=== PATIENT | male | born 1970 | race American Indian/Alaskan Native ===

== ENCOUNTER 2019-10-05 14:24 | Emergency (ER) | payer OTHER | END 2019-10-05 21:38 | disposition home or self-care (01) | LOC: ED 14:24 | CPT/HCPCS: 71046; 87400 ==

== ENCOUNTER 2021-09-03 19:07 | Emergency (ER) | payer OTHER ==
--- NOTE | 2021-09-03 21:45 | Emergency Department Report ---
ED Neuro Deficit HPI - General Chief Complaint: Neuro Symptoms/Deficit Stated Complaint: SLURRED SPEECH Source: patient Mode of arrival: Ambulatory Limitations: No Limitations - History of Present Illness Initial Comments: This is a 51-year-old male with past medical history of hypertension who presents to emergency department after he had slurred speech on and Friday. Patient did not seek care as he thought the symptoms may be secondary to his busy schedule and him not taking his blood pressure medications. He did not check his blood pressure during this time. He denies drinking any alcohol at this time. He denies any associated numbness tingling or weakness. He denies any trouble with his gait. Patient does follow with primary care doctor at [facility] and they referred him to the emergency department. -: days(s) Location: dysarthria History of same: No Severity: mild On Anticoagulants: No Context: change in medication Associated Symptoms: denies other symptoms Treatments Prior to Arrival: none - Related Data Home Medications: Previous Rx's Medication Instructions Recorded Last Taken Type Acetaminophen [Acetaminophen TAB] 325 mg PO Q4H PRN #30 tablet 04/06/17 Unknown Rx Lisinopril/Hydrochlorothiazide 1 tab PO QDAY #30 tab 04/06/17 Unknown Rx [Zestoretic 20-12.5 mg] Acetaminophen/Chlorpheniramine 1 each PO Q6H #20 tablet 10/05/19 Unknown Rx [Coricidin Hbp Cold-Flu Tablet] Benzonatate [Tessalon Perles] 100 mg PO Q8HR PRN #30 capsule 10/05/19 Unknown Rx Fluticasone [Flonase] 1 spray NS QDAY #1 bottle 10/05/19 Unknown Rx Aspirin [Aspirin BABY CHEW TAB] 81 mg PO DAILY #30 tab.chew 09/03/21 Unknown Rx Rosuvastatin Calcium [Crestor] 40 mg PO DAILY #30 tablet 09/03/21 Unknown Rx Allergies/Adverse Reactions: Allergies Allergy/AdvReac Type Severity Reaction Status Date / Time No Known Allergies Allergy Verified 04/22/14 20:36 ED Review of Systems ROS: Stated complaint: SLURRED SPEECH Other details as noted in HPI Constitutional: denies: chills, fever Eyes: denies: eye pain ENT: denies: throat pain Respiratory: denies: cough Cardiovascular: denies: chest pain Endocrine: no symptoms reported Gastrointestinal: denies: abdominal pain, nausea, vomiting Genitourinary: denies: urgency, dysuria Skin: denies: rash Neurological: denies: headache, weakness Psychiatric: denies: anxiety, depression Hematological/Lymphatic: denies: easy bleeding ED Past Medical Hx - Past Medical History Previous Medical History?: Yes Hx Hypertension: Yes (non compliant with medication for the past) - Surgical History Past Surgical History?: Yes Additional Surgical History: right inquinal hernia repair - Social History Smoking Status: Never Smoker Substance Use Type: None - Medications Home Medications: Home Medications Medication Instructions Recorded Confirmed Last Taken Type Acetaminophen [Acetaminophen TAB] 325 mg PO Q4H PRN #30 tablet 04/06/17 Unknown Rx Lisinopril/Hydrochlorothiazide 1 tab PO QDAY #30 tab 04/06/17 Unknown Rx [Zestoretic 20-12.5 mg] Acetaminophen/Chlorpheniramine 1 each PO Q6H #20 tablet 10/05/19 Unknown Rx [Coricidin Hbp Cold-Flu Tablet] Benzonatate [Tessalon Perles] 100 mg PO Q8HR PRN #30 capsule 10/05/19 Unknown Rx Fluticasone [Flonase] 1 spray NS QDAY #1 bottle 10/05/19 Unknown Rx Aspirin [Aspirin BABY CHEW TAB] 81 mg PO DAILY #30 tab.chew 09/03/21 Unknown Rx Rosuvastatin Calcium [Crestor] 40 mg PO DAILY #30 tablet 09/03/21 Unknown Rx ED Neuro Physical Exam - General Limitations: No Limitations General appearance: alert, in no apparent distress Suspected Stroke: No - Head Head exam: Present: atraumatic, normocephalic - Eye Eye exam: Present: normal appearance, PERRL, EOMI Pupils: Present: normal accommodation - ENT ENT exam: Present: normal exam - Neck Neck exam: Present: normal inspection - Respiratory Respiratory exam: Present: normal lung sounds bilaterally. Absent: respiratory distress, wheezes, rales - Cardiovascular Cardiovascular Exam: Present: regular rate, normal rhythm - GI/Abdominal GI/Abdominal exam: Present: soft. Absent: distended, tenderness - Rectal Rectal exam: Present: deferred - Extremities Exam Extremities exam: Present: normal inspection, full ROM. Absent: tenderness - Back Exam Back exam: Present: normal inspection - Neurological Exam Neurological exam: Present: alert, oriented X3 - NIHSS Assessment Interval: 24 hours post onset of symptoms +-20 minutes ED Course Vital Signs 09/03/21 09/03/21 19:11 21:30 Temperature 97.7 F Pulse Rate 88 74 Respiratory 18 14 Rate Blood Pressure 158/101 Blood Pressure 145/83 [Right] O2 Sat by Pulse 98 95 Oximetry - Reevaluation(s) Reevaluation #1: 09/03/21 23:29 I discussed the results of the patient's labs and imaging. Patient was offered admission for further stroke work-up however patient does not wish to stay. He is encouraged to continue taking his blood pressure medication he is also been started on a daily aspirin as well as statin. Patient is to call his primary care doctor tomorrow and discuss his results. He is also encouraged to follow- up with neurology. We also discussed strict return precautions including any new neuro symptoms. - Lab Data Result diagrams: 09/03/21 21:44 09/03/21 21:44 Lab Results 09/03/21 09/03/21 09/03/21 Range/Units 21:44 21:44 21:44 WBC 7.5 (4.5-11.0) K/mm3 RBC 5.94 H (3.65-5.03) M/mm3 Hgb 13.3 (11.8-15.2) gm/dl Hct 41.8 (35.5-45.6) % MCV 70 L (84-94) fl MCH 22 L (28-32) pg MCHC 32 (32-34) % RDW 15.9 H (13.2-15.2) % Plt Count 145 (140-440) K/mm3 Lymph % (Auto) 34.6 (13.4-35.0) % [place] % (Auto) 7.5 H (0.0-7.3) % Eos % (Auto) 3.3 (0.0-4.3) % Baso % (Auto) 0.7 (0.0-1.8) % Lymph # (Auto) 2.6 (1.2-5.4) K/mm3 [place] # (Auto) 0.6 (0.0-0.8) K/mm3 Eos # (Auto) 0.3 (0.0-0.4) K/mm3 Baso # (Auto) 0.1 (0.0-0.1) K/mm3 Seg Neutrophils % 53.9 (40.0-70.0) % Seg Neutrophils # 4.1 (1.8-7.7) K/mm3 PT 14.1 (12.2-14.9) Sec. INR 0.98 (0.87-1.13) Sodium 143 (137-145) mmol/L Potassium 3.9 (3.6-5.0) mmol/L Chloride 102.2 (98-107) mmol/L Carbon Dioxide 28 (22-30) mmol/L Anion Gap 17 mmol/L BUN 17 (9-20) mg/dL Creatinine 1.5 H (0.8-1.3) mg/dL Estimated GFR > 60 ml/min BUN/Creatinine Ratio 11 % Glucose 92 (75-100) mg/dL Calcium 9.8 (8.4-10.2) mg/dL Total Bilirubin 0.50 (0.1-1.2) mg/dL AST 24 (5-40) units/L ALT 33 (7-56) units/L Alkaline Phosphatase 65 (35-129) units/L Troponin T < 0.010 (0.00-0.029) ng/mL Total Protein 6.8 (6.3-8.2) g/dL Albumin 4.3 (3.9-5) g/dL Albumin/Globulin Ratio 1.7 % - EKG Data -: EKG Interpreted by Me EKG shows normal: sinus rhythm Rate: normal Interpretation: nonspecific ST-T wave claudia EKG performed at 2206. Patient has a rate of 71, sinus rhythm, right axis deviation. Patient does have T wave inversions in the lateral leads, ST changes in the inferior leads. - Medical Decision Making Patient is a 51-year-old male here with complaints of slurred speech which occurred on and Friday. Patient no longer has the slurred speech. Patient saw his primary care doctor who referred him to the emergency department. He currently denies any neurological symptoms. His symptoms resolved on Friday. Plan for evaluation including labs, EKG, CT scan of the brain. Will discuss after CT imaging. Critical care attestation.: If time is entered above; I have spent that time in minutes in the direct care of this critically ill patient, excluding procedure time. ED Disposition Clinical Impression: TIA (transient ischemic attack), Elevated serum creatinine Disposition: HOME / SELF CARE / HOMELESS Is pt being admited?: No Does the pt Need Aspirin: Yes Condition: Stable Instructions: Transient Ischemic Attack, [id number] Prescriptions: Aspirin [Aspirin BABY CHEW TAB] 81 mg PO DAILY #30 tab.chew Rosuvastatin Calcium [Crestor] 40 mg PO DAILY #30 tablet Referrals: PRIMARY CARE, [Primary Care Provider] - 3-5 Days
[2021-09-03 22:10] LABS: INR 0.98 (0.87-1.13)
[2021-09-03 22:16] LABS: Alanine Aminotransferase 33 units/L (7-56); Albumin 4.3 g/dL (3.9-5); BUN/Creatinine Ratio 11; Blood Urea Nitrogen 17 mg/dL (9-20); Calcium 9.8 mg/dL (8.4-10.2); Hemolysis Index 6
--- NOTE | 2021-09-03 22:22 | Cat Scan Report ---
CT HEAD WITHOUT CONTRAST INDICATION / CLINICAL INFORMATION: Slurred speech on and Friday. TECHNIQUE: All CT scans at this location are performed using CT dose reduction for ALARA by means of automated exposure control. COMPARISON: None available. FINDINGS: There is no acute intracranial hemorrhage, mass effect, or edema. There is mild diffuse cerebral atro phy with compensatory dilation of the ventricles. There are periventricular white matter hypodensitie s compatible with microangiopathic changes. There are additional bilateral chronic appearing basal ga nglia and bilateral cerebellar lacunar infarcts. The paranasal sinuses and mastoid air cells are clear. No acute osseous abnormality. IMPRESSION: 1. Findings of chronic small vessel disease as described above. No CT evidence of large acute territo rial infarction. If clinical concern for acute ischemia, MRI is recommended. Signer Name: Ham Jimenez MD Signed: 09/03/2021 10:18 PM Workstation Name: [id number]
[2021-09-03 22:53] LABS: Basophils # (Auto) 0.1 K/mm3 (0.0-0.1); Basophils % (Auto) 0.7 % (0.0-1.8); Eosinophils # (Auto) 0.3 K/mm3 (0.0-0.4); Eosinophils % (Auto) 3.3 % (0.0-4.3); Hematocrit 41.8 % (35.5-45.6); Hemoglobin 13.3 gm/dl (11.8-15.2); Lymphocytes # (Auto) 2.6 K/mm3 (1.2-5.4); Lymphocytes % (Auto) 34.6 % (13.4-35.0); Mean Corpuscular HGB Conc 32 % (32-34); Mean Corpuscular Volume 70 fl (84-94); Monocytes # (Auto) 0.6 K/mm3 (0.0-0.8); Monocytes % (Auto) 7.5 % (0.0-7.3); Platelet Count 145 K/mm3 (140-440); Red Blood Count 5.94 M/mm3 (3.65-5.03); Red Cell Distribution Width 15.9 % (13.2-15.2)
--- NOTE | 2021-09-03 22:56 | XRay Report ---
XR chest 1V ap INDICATION / CLINICAL INFORMATION: stroke workup. COMPARISON: 08/05/2019 FINDINGS: SUPPORT DEVICES: None. HEART /PULMONARY VASCULATURE: No significant abnormality. LUNGS / PLEURA: No significant pulmonary or pleural abnormality. No pneumothorax. ADDITIONAL FINDINGS: No significant additional findings. IMPRESSION: 1. No acute findings. Signer Name: Blake Dorman MD Signed: 09/03/2021 10:52 PM Workstation Name: [id number]
[2021-09-03] MEDS ORDERED: ASPIRIN 81 MG TAB CHEW PO ONE (23:23)
[2021-09-04 00:53] VITALS: BP 143/91
--- NOTE | 2021-09-04 18:36 | Electrocardiograph Report ---
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
== END 2021-09-03 23:45 | disposition home or self-care (01) ==
LOC: ED 19:07
DX: G45.9 Transient cerebral ischemic attack, unspecified (principal); R79.89 Other specified abnormal findings of blood chemistry; I10 Essential (primary) hypertension
CPT/HCPCS: 36415; 70450; 71045; 80053; 84484; 85025; 85610; 93005